=== PATIENT | male | born 2005 | race Caucasian/White ===

== ENCOUNTER 2024-11-24 13:42 | Emergency (ER) | payer BC, SELFPAY ==
--- OUTSIDE RECORDS SUMMARY | 2012-05-21 04:30 | XMS_ITS | Continuity of Care Document ---
Author Organization [facility] Address [address] [place] [address] Phone Care Team Providers Care Automotive Service Director Name Role Phone Parminder Medina MD Unavailable Unavailable Advance Directives Directive Yes / No Effective Date File Name No Information Encounters Encounter Description Practice Location Reason(s) For Visit Diagnoses Date Provider Providers Copied on Encounter [facility], [address], [place], [place], [id number], [place] tel:[phone] [facility] Allergy Dermatitis due to food taken internally dAam Zurita. [address] [address], [place], [place], [id number], . tel:[phone] Referring Provider: Thuy Morrison, [address] [place] [address] [address], [place], [address]. tel:[phone] Family History Family Member Type Diagnosis Age At Onset Brother Problem (finding) Allergies Payers Payer name Insurance type Covered libertarian ID Authoriza tion(s) [employer] [id number] 5 Social History Type Description Quantity Date Captured Comments Alcohol Use Details Unknown Caffeine Use Details Unknown Tobacco Use Status No Information Smoking Status No Information Sex Male Vital Signs Date / Time: Height Weight BMI Pulse Rate Blood Pressure Temperature Respiratory Rate Body Surface Area Head Circumference Head Circ. Percentile Wt./Carlos. Percentile BMI percentile Pulse Ox Inhaled Ox 10:07 AM 49.50 in 45.00 lbs 12.9 1 kg/m eter (2) 91 /min 105/61 mm[Hg] Chief Complaint And Reason For Visit No Information Reason For Referral Reason For Referral No Information History Of Present Illness Encounter Date Complaint History Of Prese nt Illness No Information Functional Status Date Functional Assessmen t No Information Instructions Date Instruction Additional Infor mation No Information Assessments Type Assessment Date No Information Patient Care Teams Name Effective Dates (start - stop) Status Members No Information
--- NOTE | ~2024-11-24 | CT_ITS ---
EXAMINATION: CT brain wo con COMPARISON: None HISTORY: headache, injury 1 week ago TECHNIQUE: Axial images were obtained through the brain without IV contrast. CT scan performed using dose optimization techniques including the following automated exposure control; adjustment of mA and/or kV; use of iterative reconstruction technique. Automatic exposure control was used to reduce radiation dose. Permanent radiation dose record is archived to PACS. FINDINGS: No acute infarct or parenchymal hemorrhage. No abnormal mass or mass effect. No midline shift. No extra-axial fluid collections. No hydrocephalus. . Mastoid air cells unremarkable. Sinuses and orbits unremarkable. No acute fracture. No significant facial or scalp soft tissue swelling evident. No radiopaque foreign body is seen. Impression: 1.No acute intracranial abnormality. Reviewed, dictated and finalized at location P. Impression: 1.No acute intracranial abnormality.
[2024-11-24 13:45] VITALS: BP 124/86; PULSE 104; RESP 18; TEMP 37.1; O2SAT 100
[2024-11-24] MEDS: ACETAMINOPHEN 500 MG TABLET 1000 MG PO (15:15)
--- NOTE | 2024-11-24 15:19 | PC.NURSE ---
Covid and Strep swabs sent to lab
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
[2024-11-24 15:48] LABS: Strep Group A RT-PCR NOT DETECTED (Negative)
--- OUTSIDE RECORDS SUMMARY | 2024-11-24 15:51 | XMS_ITS | Clinical Summary ---
Author Organization [facility] Address [address] [place] [address] Care Team Providers Care Tobacco Drying Machine Operator Name Role Phone Thuy Morrison MD Primary Care Provider [phone] Source Comments [facility],non-owned Affiliates and Associated Physician Practices is amultiple site organization consisting of ambulatory clinics and hospital sitesin [place], [place], [place] and [place]. This disclosure is being madepursuant to the Care Everywhere program and may not contain all information available regarding this patient. Last updated 17.[employer] [facility] Allergies No known active allergies Medications * Be aware that medications may not be up to date on this document. Alwaysverify current medications with the patient. amoxicillin (AMOXIL) 400 MG/5ML suspensionIndicat ions:Strep pharyngitis 6.5 ml PO BID x 10 days 130 mL 12/27/2016 Active Social History Tobacco Use Types Packs/Day Years Used Date Smoking Tobacco: Never Smokeless Tobacco: Never Comments:Non smoking househo ld Sex and Gender Information Value Date Recorded Sex Assigned at Not on file Legal Sex Male 12:57 PM CLOTH BIN PACKER Gender Identity Not on file Sexual Orientation Not on file Last Filed Vital Signs Vital Sign Reading Time Taken Comments Blood Pressure 94/60 10/02/2017 9:31 AM CDT Pulse 85 10/02/2017 9:31 AM CDT Temperature 36.7 C (98.1 F) 10/02/2017 9:31 AM CDT Respiratory Rate 16 12/27/2016 2:22 PM CLOTH BIN PACKER Oxygen Saturation 98% 10/02/2017 9:31 AM CDT Inhaled Oxygen Concentration - - Weight 32.7 kg (72 lb) 10/02/2017 9:31 AM CDT Height 154.9 cm (5' 1) 10/02/2017 9:31 AM CDT Body Mass Index 13.6 10/02/2017 9:31 AM CDT Plan of Treatment Health Maintenance Due Date Last Done Comments HIV SCREENING 04/11/2019 HPV VACCINE (1 - Male 3-dose series) 04/11/2019 MENINGOCOCCAL (Group B) VACC INE SHARED DECISION-MAKING (1 of 2 - Standard) 2020 HEPATITIS C SCREENING 04/06/2022 DTAP/TDAP/TD VACCINES (1 - Tdap) 04/11/2023 HEPATITIS B VACCINE (1 of 3 - 19+ 3-dose series) 04/11/2023 DEPRESSION SCREENING 02/11/2024 COVID-19 VACCINE (1 - 2023-2 5 season) 2024 INFLUENZA VACCINE (#1) 2024 ZOSTER VACCINE (1 of 2) 2054 HIB VACCINE Aged Out No longer eligi ble based on patient's age to complete this topic MENINGOCOCCAL GROUPS A/C/Y/W VACCINE Aged Out No longer eligible b ased on patient's age to complete this topic PNEUMOCOCCAL VACCINE Aged Out No long er eligible based on patient's age to complete this topic Insurance [facility] Care Teams Tobacco Drying Machine Operator Relationship Specialty Start Date End Date Thuy Morrison MD [facility] [address] [place] [address] PCP - General Pediatrics 09/25/15
--- OUTSIDE RECORDS SUMMARY | 2024-11-24 15:51 | XMS_ITS | Clinical Summary ---
Author Organization [facility] [address] Address [address] [place] [address] Care Team Providers Care Java Application Developer Name Role Phone Eric Ingram MD Primary Care Provider [phone] Allergies No known active allergies Medications No known medications Active Problems Problem Noted Date Diagnosed Date Irritable bowel syndrome 11/02/2015 Abdominal pain 09/28/2015 Diarrhea 09/28/2015 Immunizations Immunization Administration Dates Next Due DTaP / Hep B / IPV 2004,2004, 005 DTaP, Unspecified 04/06/2009,10/22/2005 HPV, Quadrivalent 12/31/2017,06/06/2017 Hep A, Unspecified 04/30/2006,10/22/2005 Hep B, Unspecified 2004 HiB 10/22/2005,2004,2004 MMR 04/06/2009,04/24/2005 Meningococcal Conjugate (Menveo) 09/20/2015 Meningococcal MCV4P (Menactra) 01/26/2009 Pneumococcal Conjugate PCV 13 04/24/2005, 005,2004,2004 Polio, Unspecified 04/06/2009 Tdap 09/20/2015 Varicella 04/06/2009,04/24/2005 Surgical History Surgery Date Site/Laterality Comments COLONOSCOPY WISDOM TOOTH EXTRACTION Family History Medical History Relation Name Comments No Known Problems Father No Known Problems Mother Relation Name Status Comments Father Mother Social History Tobacco Use Types Packs/Day Years Used Date Smoking Tobacco: Never Smokeless Tobacco: Never Tobacco Cessation:Counseling Given: Not Answered Sex and Gender Information Value Date Recorded Sex Assigned at Not on file Legal Sex Male 11:54 AM PHOTOGRAPH ENLARGER Gender Identity Not on file Sexual Orientation Not on file Obstetrics History Last Filed Vital Signs Vital Sign Reading Time Taken Comments Blood Pressure 118/81 04/15/2024 2:18 PM PHOTOGRAPH ENLARGER Pulse 74 04/15/2024 2:18 PM PHOTOGRAPH ENLARGER Temperature - - Respiratory Rate - - Oxygen Saturation - - Inhaled Oxygen Concentration - - Weight 59 kg (130 lb) 04/15/2024 2:18 PM PHOTOGRAPH ENLARGER Height 172.7 cm (5' 8) 04/15/2024 2:18 PM PHOTOGRAPH ENLARGER Body Mass Index 19.77 04/15/2024 2:18 PM PHOTOGRAPH ENLARGER Plan of Treatment Health Maintenance Due Date Last Done Comments Depression Screening 2004 Hepatitis C Screening 2004 Meningococcal B Vaccine (1 of 2 - Standard) 2020 Regular Well Visit/Exam 18-64 2022 Covid-19 Vaccine (3 - 2024- season) 2024 06/15/2020, 05/26/2020 Influenza Vaccine (#1) 2024 DTaP/Tdap/Td Vaccine (7 - Td or Tdap) 09/19/2025 09/20/2015, 04/06/2009, 10/22/2005, Additional history exists Hepatitis B Screening Completed 2004 , 2004, 2004, Additional history exists Pneumococcal vaccine <65 Completed 006, 2004, 2004, Additional history exists Varicella Vaccines Completed 04/06/2009, 04/24/2005 Meningococcal Vaccine Aged Out 09/20/2015, 009 No longer eligible based on patient's age to complete this topic HPV Vaccines Completed 12/31/2017, 06/06/2017 Insurance [employer] [facility] Care Teams Java Application Developer Relationship Specialty Start Date End Date Eric Ingram MD PCP - General Internal Medicine 04/15/24
[2024-11-24 16:00] LABS: Influenza A QL RT-PCR Negative (Negative); Influenza B QL RT-PCR Negative (Negative); RSV RNA, RT-PCR Negative (Negative); SARS-CoV-2 RNA PCR Negative (Negative)
--- OUTSIDE RECORDS SUMMARY | 2024-11-24 16:32 | XMS_ITS | Clinical Summary ---
Author Organization [facility] Address [address] [place] [address] Care Team Providers Care Retail Advertising Sales Manager Name Role Phone Thuy Morrison MD Primary Care Provider [phone] Source Comments [facility],non-owned Affiliates and Associated Physician Practices is amultiple site organization consisting of ambulatory clinics and hospital sitesin [place], [place], [place] and [place]. This disclosure is being madepursuant to the Care Everywhere program and may not contain all information available regarding this patient. Last updated 10/31/17.[facility] [employer] [facility] Allergies No known active allergies Medications * [...] on file Legal Sex Male 12:57 PM VOLCANOLOGY PROFESSOR Gender Identity Not on file Sexual Orientation Not on file Last Filed Vital Signs Vital Sign Reading Time Taken Comments Blood Pressure 94/60 10/02/2017 9:31 AM CDT Pulse 85 10/02/2017 9:31 AM CDT Temperature 36.7 C (98.1 F) 10/02/2017 9:31 AM CDT Respiratory Rate 16 12/27/2016 2:22 PM VOLCANOLOGY PROFESSOR Oxygen Saturation 98% 10/02/2017 9:31 AM CDT [...] patient's age to complete this topic Insurance [facility] Care Teams Retail Advertising Sales Manager Relationship Specialty Start Date End Date Thuy Morrison MD [facility] [address] [place] [address] PCP - General Pediatrics 09/25/15
--- OUTSIDE RECORDS SUMMARY | 2024-11-24 16:32 | XMS_ITS | Clinical Summary ---
Author Organization [facility] [address] Address [address] [place] [address] Care Team Providers Care Property Utilization Manager Name Role Phone Eric Ingram MD Primary Care Provider [phone] Allergies No known active allergies Medications No [...] on file Legal Sex Male 11:54 AM MARINE PILOT Gender Identity Not on file Sexual Orientation Not on file Obstetrics History Last Filed Vital Signs Vital Sign Reading Time Taken Comments Blood Pressure 118/81 04/15/2024 2:18 PM MARINE PILOT Pulse 74 04/15/2024 2:18 PM MARINE PILOT Temperature - - Respiratory Rate - - Oxygen Saturation - - Inhaled Oxygen Concentration - - Weight 59 kg (130 lb) 04/15/2024 2:18 PM MARINE PILOT Height 172.7 cm (5' 8) 04/15/2024 2:18 PM MARINE PILOT Body Mass Index 19.77 04/15/2024 2:18 PM MARINE PILOT Plan of Treatment Health Maintenance Due Date [...] topic HPV Vaccines Completed 12/31/2017, 06/06/2017 Insurance [place] [employer] [facility] Care Teams Property Utilization Manager Relationship Specialty Start Date End Date Eric Ingram MD PCP - General Internal Medicine 04/15/24
[2024-11-24 16:50] VITALS: BP 117/76; PULSE 77; RESP 16; TEMP 36.8; O2SAT 98
== END 2024-11-24 16:51 | disposition home or self-care (01) ==
PROVIDERS: PCP Internal Medicine
DX: G44.309 Post-traumatic headache, unspecified, not intractable (principal); F07.81 Postconcussional syndrome; Z20.822 Contact with and (suspected) exposure to COVID-19
CPT/HCPCS: 70450; 87637; 87651; 99284; A9270